=== PATIENT | female | born 1960 | race Caucasian/White ===

== ENCOUNTER → 2021-01-17 10:53 | Outpatient (CLI) | payer OTHER, SELFPAY ==
--- NOTE | 2021-01-17 | DI.MG.S_ITS ---
BILATERAL DIGITAL SCREENING MAMMOGRAM 3D/2D WITH CAD: 01/17/2021 CLINICAL: Routine screening. Family history of breast cancer. Comparison is made to exams dated: 11/06/2017 mammogram, 10/15/2016 mammogram, and 09/18/2016 mammogram - outside location. There are scattered fibroglandular elements in both breasts. Current study was also evaluated with a Computer Aided Detection (CAD) system. No significant masses, calcifications, or other findings are seen in either breast. There has been no significant interval change. IMPRESSION: NEGATIVE There is no mammographic evidence of malignancy. A 1 year screening mammogram is recommended. This exam was interpreted at Station ID: [id number]. NOTE: For mammograms, a report in lay terms will be sent to the patient. Approximately 15% of breast malignancies will not be visualized mammographically. In the management of a palpable breast mass, a negative mammogram must not discourage biopsy of a clinically suspicious lesion. Electronically Signed By: Licha leos/jean paul:01/17/2021 14:58:25 letter sent: Normal Exam ACR BI-RADS Category 1: Negative 3341F
== END ==
PROVIDERS: PCP Student in an Organized Health Care Education/Training Program; Referring Provider Student in an Organized Health Care Education/Training Program; Visit Provider Student in an Organized Health Care Education/Training Program
DX: Z12.31 Encounter for screening mammogram for malignant neoplasm of breast (principal)
CPT/HCPCS: 77063; 77067

== ENCOUNTER → 2021-07-02 09:40 | Outpatient (CLI) | payer OTHER, SELFPAY ==
[2021-07-02 13:35] LABS: COVID19 -Nasal RAPID Negative (Negative)
== END ==
PROVIDERS: PCP Student in an Organized Health Care Education/Training Program; Visit Provider Physician Assistant
DX: Z20.822 Contact with and (suspected) exposure to COVID-19 (principal); Z01.812 Encounter for preprocedural laboratory examination
CPT/HCPCS: 87635

== ENCOUNTER 2021-07-03 09:57 | Day surgery (SDC) | payer OTHER, SELFPAY ==
[2021-07-03] VITALS (7 sets, daily range): BP systolic 100–128; BP diastolic 56–83; PULSE 73–103; RESP 12–20; TEMP 36.4–37.7; O2SAT 92–97; BMI 27.4
--- NOTE | 2021-07-03 | PATH_ITS ---
[facility] Accession Number: [id number] . 01 Material submitted: . colon - ASCENDING COLON POLYPS . 01 Clinical history: . SDC . 02 Diagnosis: Ascending Colon, Polyps, Biopsies: Tubular adenomas. MRV 07/10/2021 1220 Local . 02 Electronically signed: . Nuha Arzola MD, Pathologist NPI- [id number] . 01 Gross description: . The specimen is received in formalin, labeled colon and consists of three cooney fragments of soft tissue measuring 0.4 x 0.3 x 0.2 cm in aggregate. The specimen is entirely submitted in cassette A1. ([id number]) /MRV 07/06/2021 1252 Local . 02 Pathologist provided ICD-10: D12.2 . 02 CPT . 174543 Performed at: 01 [facility] [address] [id number] MD Maxi Rush MD Phone: [phone] [facility]formed at: [facility] [address] [place], [place] [id number] MD Nuha Arzola MD Phone: [phone]
[2021-07-03] MEDS: SODIUM CHLORIDE 0.9% 1,000 ML 84 ML IV (10:36)
--- NOTE | 2021-07-03 11:34 | PM.HP.1 ---
History of Present Illness History of Present Illness Date Patient Seen: 07/03/21 Time Patient Seen: 11:34 Chief complaint: SDC Narrative: Patient indicates that she has occasional abdominal discomfort in a number of locations that she manages with probiotics. She also reports that her last colonoscopy was 10 years ago and she believes that there were polyps removed at that Patient History Family & Social History Social History: household members spouse Tobacco & Substance use: Tobacco type cigarettes Smoking Status Current every day smoker Smoking packs per day 6 alcohol intake frequency holiday/special occasion Substance Use Type does not use Comment: No family history of colon cancer. Meds Home Medications and Allergies Home Medications Medication Instructions Recorded Confirmed Type atorvastatin 20 mg tablet 20 mg PO DAILY 07/03/21 07/03/21 History bupropion HCl 100 mg tablet,12 hr 100 mg PO BID 07/03/21 07/03/21 History sustained-release lisinopril 10 mg tablet 10 mg PO DAILY 07/03/21 07/03/21 History Allergies Allergy/AdvReac Type Severity Reaction Status Date / Time No Known Drug Allergies Allergy Verified 07/03/21 10:12 Review of Systems Review of Systems ROS: Yes All systems reviewed with the patient and are negative except as otherwise documented Exam Vital Signs (past 8 hours): - 07/03/21 10:14 Temperature 99.9 F H Pulse Rate 103 H Respiratory Rate 18 Blood Pressure 128/83 Pulse Oximetry 97 Oxygen Delivery Method Room Air Const General: cooperative and comfortable Orientation: alert HENMT Head: normocephalic Ears: external ears normal Nose: external nose normal Face and sinus: normal facial exam Mouth: oral mucosae normal Eyes General: appearance normal, both eyes and all related structures Neck Neck: normal visual inspection Chest Chest: normal inspection of the chest Resp Effort & Inspection: normal respiratory effort Auscultation: clear to auscultation bilaterally Cardio Rate: regular rate Rhythm: regular rhythm Heart Sounds: no murmurs GI Inspection: normal to inspection Palpation: soft and No tender Auscultation: normal bowel sounds Skin General: no rashes or lesions noted and No jaundice Neuro General: patient alert and moves all extremities Cognition: normal cognition Speech: speech normal Extrem General: no pedal edema Psych Appearance: grossly normal Assessment & Plan Assessment & Plan narrative: Patient is indicated for colon cancer screening. Colonoscopy is pursued today.
--- NOTE | 2021-07-03 11:35 | PM.PREOP ---
Pre-operative Note COVID-19 COVID-19 status: Negative Result date/Date tested (Pos, Neg/Pending): 07/02/21 Interval Note History & Physical reviewed/Exam performed by Physician: Yes Changes to H&P: No H&P completed within 30 days and has changed as indicated here:: Today ASA Class (for procedural sedation): II
[2021-07-03] MEDS: MIDAZOLAM 5 MG/5 ML VIAL IV (11:56)
[2021-07-03] MEDS: fentaNYL 250 MCG/5 ML INJ IV (11:56)
--- NOTE | 2021-07-03 12:01 | P.OP.ENDO_ITS ---
Operative Date/Time/Diagnoses Date of procedure: 07/03/21 Time of procedure: 12:01 Pre-op diagnosis: Colon cancer screening Post-op diagnosis: same Procedure & Clinicians Study performed: Colonoscopy with hot and cold snare polypectomy Same procedure as scheduled: Yes Indications: Colon cancer screening Surgeon: Aubrey Hilton Procedure Notes SCOAP/Timeout: Done Procedure in detail: After the risks and benefits were explained, written and verbal informed consent was obtained. The patient was brought into the procedure room and placed into the left lateral decubitus position. Conscious sedation medication was applied as per nursing documentation. Digital rectal examination was accomplished. The scope was introduced into the patient and advanced under direct visualization to the cecum as identified by the appen diceal orifice and ileocecal valve. The scope was slowly withdrawn to carefully examine the mucosa for any defects or lesions. Comprehensive imaging was accomplished throughout the rectum including the dentate line. The colon was decompressed, the scope was then removed from the patient who tolerated the procedure well. Bowel prep adequate Sedation 4 mg Versed 100 mcg fentanyl Pediatric colonoscope Scope withdrawal time: 10 minutes Sedation minutes: 23 Complications: none Impression: Patient had rather extensive diverticulosis all throughout the sigmoid. Diverticular pockets extended all the way even into the ascending colon. In the transverse colon there were 2 diminutive polyps perhaps 4-5 mm sessile removed with cold snare. In the distal ascending colon there was a 3rd polyp perhaps 5-6 mm removed with hot snare. All of these were submitted together. No significant additional pathology was appreciated throughout. Endoscopic diagnosis 1. Diverticulosis 2. Multiple colon polyps Post-procedure Recommendations: Colonscopy in 3 years Plan for aftercare: 1. Await histopathology 2. If all of these polyps are returned adenomatous, repeat colonoscopy will be suggested for 3 years. Disposition: PACU
== END 2021-07-03 12:51 | disposition home or self-care (01) ==
PROVIDERS: PCP Student in an Organized Health Care Education/Training Program; Referring Provider Internal Medicine Gastroenterology; Visit Provider Internal Medicine Gastroenterology
PROC: 0DJD8ZZ Inspection of Lower Intestinal Tract, Via Natural or Artificial Opening Endoscopic (ICD-10-PCS; CPT 45378; principal; 2021-07-03 11:00)
DX: Z12.11 Encounter for screening for malignant neoplasm of colon (principal); F17.210 Nicotine dependence, cigarettes, uncomplicated; D12.2 Benign neoplasm of ascending colon; K57.30 Diverticulosis of large intestine without perforation or abscess without bleeding
CPT/HCPCS: 45385; 45380; J2250; J3010

== ENCOUNTER → 2022-04-04 11:12 | Outpatient (CLI) | payer OTHER, SELFPAY ==
--- NOTE | 2022-04-04 | DI.MG.S_ITS ---
BILATERAL DIGITAL SCREENING MAMMOGRAM 3D/2D WITH CAD: 04/04/2022 CLINICAL: Routine screening. Family history of breast cancer. Comparison is made to exams dated: 01/17/2021 mammogram - [facility], 01/29/2019 mammogram, and 11/06/2017 mammogram - outside location. There are scattered fibroglandular elements in both breasts. Current study was also evaluated with a Computer Aided Detection (CAD) system. No significant masses, calcifications, or other findings are seen in either breast. There has been no significant interval change. IMPRESSION: NEGATIVE There is no mammographic evidence of malignancy. A 1 year screening mammogram is recommended. This exam was interpreted at Station ID: [id number]. NOTE: For mammograms, a report in lay terms will be sent to the patient. Approximately 15% of breast malignancies will not be visualized mammographically. In the management of a palpable breast mass, a negative mammogram must not discourage biopsy of a clinically suspicious lesion. Electronically Signed By: Javi pond/jean paul:04/05/2022 07:22:19 letter sent: Normal Exam ACR BI-RADS Category 1: Negative 3341F
== END ==
PROVIDERS: PCP Student in an Organized Health Care Education/Training Program; Referring Provider Student in an Organized Health Care Education/Training Program; Visit Provider Student in an Organized Health Care Education/Training Program
DX: Z12.31 Encounter for screening mammogram for malignant neoplasm of breast (principal)
CPT/HCPCS: 77063; 77067

== ENCOUNTER → 2023-06-02 11:56 | Outpatient (CLI) | payer OTHER, SELFPAY ==
--- NOTE | 2023-06-02 11:57 | DI.MG.S_ITS ---
BILATERAL DIGITAL SCREENING MAMMOGRAM 3D/2D WITH CAD: 06/02/2023 CLINICAL: Routine screening. Family history of breast cancer. Comparison is made to exams dated: 04/04/2022 mammogram, 01/17/2021 mammogram - [facility], and 01/29/2019 mammogram - outside location. Both breasts are heterogeneously dense, which may obscure small masses (category c / 51-75% glandular tissue). Current study was also evaluated with a Computer Aided Detection (CAD) system. No significant masses, calcifications, or other findings are seen in either breast. There has been no significant interval change. IMPRESSION: NEGATIVE There is no mammographic evidence of malignancy. A 1 year screening mammogram is recommended. Based on the Tyrer Cuzick model (a risk assessment model) the patient's lifetime risk is 18.0% and her 10 year risk is 8.3%. According to the ACR, ACS, and NCCN guidelines, an annual breast MRI exam along with mammogram is recommended if the patient's lifetime risk is 20% or greater. This exam was interpreted at Station ID: [id number]. NOTE: For mammograms, a report in lay terms will be sent to the patient. Approximately 15% of breast malignancies will not be visualized mammographically. In the management of a palpable breast mass, a negative mammogram must not discourage biopsy of a clinically suspicious lesion. Electronically Signed By: Swetha cmelroy/jean paul:06/02/2023 14:41:36 letter sent: Normal Exam ACR BI-RADS Category 1: Negative 3341F
== END ==
PROVIDERS: Visit Provider Student in an Organized Health Care Education/Training Program
DX: Z12.31 Encounter for screening mammogram for malignant neoplasm of breast (principal); Z80.3 Family history of malignant neoplasm of breast
CPT/HCPCS: 77063; 77067

== ENCOUNTER → 2025-08-16 09:45 | Outpatient (CLI) | payer MEDICARE, OTHER, SELFPAY ==
--- NOTE | 2025-08-16 09:47 | DI.RAD.S_ITS ---
PROCEDURE: XR DEXA AXIAL SKELETON INDICATIONS: screening for osteoprosis COMPARISON: None. FINDINGS: Lumbar Spine: Bone mineral density 0.981 g/cm2, T score -0.6. Left Femoral Neck: Bone mineral density 0.767 g/cm2, T score -0.7. Left Hip: Bone mineral density 0.900 g/cm2, T score -0.3. Fracture Risk Calculation (when applicable): FRAX score not reported due to T-scores greater than or equal to -1.0. (T score greater or equal to -1.0 to: NORMAL) (T score from -1.1 to -2.4: OSTEOPENIA) (T score less than or equal to -2.5: OSTEOPOROSIS) IMPRESSION: By WHO criteria, patient has normal bone mineral density. Follow-up guidelines as follows: Osteoporosis: Consider a repeat DEXA and Vertebral Fracture Assessment (VFA) exam in 2 years or sooner if medically necessary, to reassess this patient's status. Osteopenia: Consider a repeat DEXA in 2-3 years to reassess this patient's status, or if there is a new clinical indication. Normal: Consider a repeat DEXA in 5 years or sooner, or if there is a new clinical indication. All treatment decisions require clinical judgment and consideration of individual patient factors, including patient preferences, comorbidities, previous drug use, risk factors not captured in the FRAX model (e.g., frailty, falls, vitamin D deficiency, increased bone turnover, interval significant decline in bone density ) and possible under- or over-estimation of fracture risk by FRAX. In addition, the NOF Guide recommends that FDA-approved medical therapies be considered in postmenopausal women and men age >= 50 years with a: * Hip or vertebral (clinical or morphometric) fracture * T-score of <=-2.5 at the spine or hip * Ten-year fracture probability by FRAX of >= 3% for hip fracture or >=20% for major osteoporotic fracture. Approved by: Mohan West M.D. on 08/16/2025 at 20:25
== END ==
LOC: RAD 09:47
PROVIDERS: PCP Student in an Organized Health Care Education/Training Program; Referring Provider Student in an Organized Health Care Education/Training Program; Visit Provider Student in an Organized Health Care Education/Training Program
DX: M85.89 Other specified disorders of bone density and structure, multiple sites (principal); M81.0 Age-related osteoporosis without current pathological fracture
CPT/HCPCS: 77080

== ENCOUNTER → 2025-09-09 07:53 | Outpatient (CLI) | payer MEDICARE, OTHER, SELFPAY ==
[2025-09-09 08:34] LABS: Hematocrit 43.1 % (36-46); Hemoglobin 15.0 g/dL (12.0-16.0); Mean Corpuscular HGB Conc 34.7 % (30-36); Mean Corpuscular Hemoglobin 31.5 PG (26-34); Mean Corpuscular Volume 90.7 fL (80-100); Platelet Count 268 X10^3/uL (150-400)
[2025-09-09 09:00] LABS: Alanine Aminotransferase 33 IU/L (<35); Albumin 4.5 g/dL (3.5-5.0); Albumin Globulin Ratio 1.9 (1.0-2.8); Alkaline Phosphatase 85 U/L (38-126); Blood Urea Nitrogen 15 mg/dL (7-17); Calcium 10.0 mg/dL (8.4-10.2); Carbon Dioxide 25 mmol/L (22-32); Chloride 104 mmol/L (98-107); Cholesterol 169 mg/dL (140-199); Estimated Glomerular Filt Rate > 60 mL/min (>60); Globulin 2.4 g/dL (1.7-4.1); Glucose 129 mg/dL (70-99); HDL Cholesterol 37 mg/dL (40-60); HEMOLYSIS < 15 (0-50); Potassium 4.5 mmol/L (3.4-5.1); Sodium 137 mmol/L (137-145); Total Protein 6.9 g/dL (6.3-8.2); Triglycerides 342 mg/dL (35-150)
[2025-09-09 09:27] LABS: TSH w/ Reflex to FT4 1.64 uIU/mL (0.47-4.68)
[2025-09-09 10:48] LABS: Band Neutrophils Percent 1.0 % (3-7); Basophils Percent Manual 1.0 % (0-1); Eosinophils Percent Manual 2.0 % (2-4); Lymphocytes Percent Manual 36.0 % (25-45); Monocytes Percent Manual 6.0 % (2-11); Neutrophils Absolute Manual 2365 /uL (3000-5900); Segmented Neutrophils Percent 54.0 % (38-70); Total Cells Counted 100
[2025-09-09 10:49] LABS: RBC Morphology Normal Morphology
[2025-09-09 13:06] LABS: Hemoglobin A1C% w Est Avg Glu 5.9 % (4.0-6.0)
== END ==
PROVIDERS: PCP Student in an Organized Health Care Education/Training Program; Referring Provider Student in an Organized Health Care Education/Training Program; Visit Provider Student in an Organized Health Care Education/Training Program
DX: I10 Essential (primary) hypertension (principal); R73.9 Hyperglycemia, unspecified
CPT/HCPCS: 36415; 80053; 80061; 83036; 84443; 85025

== ENCOUNTER 2025-10-03 12:11 | Day surgery (SDC) | payer MEDICARE, OTHER, SELFPAY ==
[2025-10-03 13:12] VITALS: BP 159/93; PULSE 99; RESP 16; TEMP 36.2; O2SAT 96
[2025-10-03] MEDS: LACTATED RINGERS 1,000 ML 42 ML IV (13:15)
--- NOTE | 2025-10-03 13:15 | PM.HP.IH.1 ---
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) Social History household members: spouse Smoking Status: Current every day smoker alcohol intake: current Meds Home Medications and Allergies Home Medications ?Medication ?Instructions ?Recorded ?Confirmed ?Type atorvastatin 20 mg tablet 20 mg PO DAILY #90 tabs 08/08/25 08/08/25 Rx bupropion HCl 100 mg tablet,12 hr 100 mg PO BID #120 ea 08/08/25 08/08/25 Rx sustained-release (Wellbutrin SR) lisinopril 10 mg tablet 10 mg PO DAILY #90 tabs 08/08/25 08/08/25 Rx olopatadine 0.1 % eye drops drp EYE-BOTH .prn 08/08/25 08/08/25 History sodium,potassium,mag sulfates 17.5 See Rx Instructions PO .COMPLEX 09/07/25 Rx gram-3.13 gram-1.6 gram oral soln #354 mL (Suprep Bowel Prep Kit) Allergies Allergy/AdvReac Type Severity Reaction Status Date / Time No Known Drug Allergies Allergy Verified 08/08/25 10:56 Exam Vital Signs (past 8 hours): - 10/03/25 13:12 Temperature 97.2 F L Pulse Rate 99 H Respiratory Rate 16 Blood Pressure 159/93 H Pulse Oximetry 96 Oxygen Delivery Method Room Air Oxygen Delivery Method Room Air Assessment & Plan Time-Based Coding :: [TOTAL MINUTES] spent with patient and on the chart (including review of chart, obtaining history, exam, reviewing outside data, placing orders, documenting exam and treatment plan, and counseling patient) on [DATE]. PROFEE Director Of Training Document charge(s): No
--- NOTE | 2025-10-03 13:17 | PM.OP.COLON ---
Operative Date/Time/Diagnoses Date of procedure: 10/03/25 Time of procedure: 14:07 Pre-op diagnosis: See indication and findings Post-op diagnosis: same Procedure & Clinicians Same procedure(s) as scheduled: Yes Indications: History of adenomatous colon polyps Surgeon: Valerie Hickey Anesthesia Type: MAC +/- Procedure Notes Procedure in detail: After informed consent was obtained the patient was placed in left lateral decubitus position. The video colonoscope was placed the rectum slowly advanced cecum. Preparation was good. On slow withdrawal mucosa was carefully examined. The scope was removed. The patient tolerated procedure well. Blood loss none Complications none Sedation mac Findings 1. Normal colonoscopy to cecum Patient should have follow-up colonoscopy in 5 years Estimated Blood Loss: 0 Complications: none
[2025-10-03 14:10] VITALS: BP 93/72; PULSE 88; RESP 16; TEMP 36.7; O2SAT 90
[2025-10-03 14:15] VITALS: BP 107/69; PULSE 82; RESP 16; TEMP 36.7; O2SAT 93
[2025-10-03 14:20] VITALS: BP 113/71; PULSE 77; RESP 16; TEMP 36.7; O2SAT 95
[2025-10-03 14:27] VITALS: BP 108/71; PULSE 77; RESP 16; TEMP 36.7; O2SAT 95
== END 2025-10-03 14:30 | disposition home or self-care (01) ==
PROVIDERS: PCP Student in an Organized Health Care Education/Training Program; Referring Provider Internal Medicine Gastroenterology; Visit Provider Internal Medicine Gastroenterology
PROC: 0DJD8ZZ Inspection of Lower Intestinal Tract, Via Natural or Artificial Opening Endoscopic (ICD-10-PCS; CPT 45378; principal; 2025-10-03 13:30)
DX: Z12.11 Encounter for screening for malignant neoplasm of colon (principal); Z86.0101 Personal history of adenomatous and serrated colon polyps; F17.210 Nicotine dependence, cigarettes, uncomplicated
CPT/HCPCS: G0105; J2704; J7120